=== PATIENT | female | born 1990 | race Caucasian/White ===

== ENCOUNTER 2022-09-23 09:11 | Emergency (ER) | payer OTHER ==
[2022-09-23 10:08] LABS: ESTIMATED GFR 123 mL/min (>60)
[2022-09-23] MEDS ORDERED: cefTRIAXone 1 GM Vial IM ONE (10:15)
== END 2022-09-23 10:55 | disposition home or self-care (01) ==
LOC: FB.ED 09:11
DX: N30.01 Acute cystitis with hematuria (principal)
CPT/HCPCS: 36415; 80053; 81001; 85025; 87086; 87088; 87186; 96372; 99282; 99284; J0696